=== PATIENT | female | born 1980 | race African-American/Black ===

== ENCOUNTER → 2016-04-01 | Outpatient (CLI) | payer OTHER ==
[~2016-04-01] MED LIST: CONRAY-43 43% 50ML VIAL (Q9960) As Ordered ONE
--- NOTE | 2016-04-01 10:03 | REP ---
MR ARTHROGRAPHY LEFT SHOULDER WITH PRE- AND POST INTRA-ARTICULAR GADOLINIUM ENHANCED SALINE INJECTED IMAGING: HISTORY: Left shoulder pain. No known injury. No comparison radiographs. TECHNIQUE: The injection procedure is performed and dictated separately. Pre and post intra-articular gadolinium enhanced saline injected imaging is acquired. Imaging planes include axial, oblique coronal, oblique sagittal and ABER projection images. T1- and T2-weighted scans are included with and without fat saturation. MRI FINDINGS: Cortical and medullary bone signal intensity are normal. Glenohumeral and acromioclavicular joints are normally aligned. Pre-injection MR imaging shows a tiny subcortical cyst in the superolateral humeral head. There is mild inferior spurring at the AC joint and mild inferolateral spurring is seen in the acromion process. There is no other significant abnormality on pre-injection imaging. Post- injection imaging shows good filling and enhancement of the left glenohumeral articulation. No loose body is seen. No anterior or posterior labral tear is seen. The superior labrum appears intact. There is no evidence of full-thickness rotator cuff tear. There is mild tendonitis tendinosis change in the supraspinatus tendon. ABER image shows no evidence of labral tear. IMPRESSION: Mild tendonitis tendinosis change in the supraspinatus. There is inferolateral spurring of the acromion and distal clavicle also mild. Signed by Jona Castañeda MD 04/01/2016 10:31 A
--- NOTE | 2016-04-01 17:32 | REP ---
LEFT SHOULDER ARTHROGRAM: The procedure was performed under the direct supervision of Dr. Castañeda. The benefits and risks including but not limited to pain, infection, bleeding, and anaphylaxis were explained to the patient and informed consent was obtained. The left glenohumeral joint space was localized using fluoroscopic guidance. The skin was prepped and draped in a sterile fashion. 1% Lidocaine was used a local anesthetic. Using fluoroscopic guidance a 22-gauge needle was inserted into the joint 1 mL of Conray-43 was injected to verify placement. 11 mL of a solution containing 20 mL of sterile saline and 0.15 mL of ProHance was injected. The needle was removed and the patient was taken to MRI for postprocedural imaging. The patient tolerated the procedure well and there were no immediate complications. 1 second of fluoroscopic time was utilized for this procedure. Reviewed by DEVAUGHN Garvin 04/02/2016 11:08 AEdited and Signed by Jona Castañeda MD 04/02/2016 12:19 P
== END ==
LOC: M RADPRO 07:43
PROVIDERS: ATTEND Physician Assistant
DX: M75.82 Other shoulder lesions, left shoulder (principal); M25.712 Osteophyte, left shoulder
CPT/HCPCS: 23350; 73223; 77002; A9576; Q9960